=== PATIENT | female | born 1955 | race Caucasian/White ===

== ENCOUNTER 2019-05-01 20:50 | Emergency (ER) | payer MEDICARE ==
[~2019-05-01] VITALS: Ht 162.6 cm; Wt 81.7 kg
[~2019-05-01 20:50] MED LIST: ABILIFY2 MG PO; CYMBALTA60 MG PO; FENOFIBRATE145 MG PO; LEVOTHYROXINE125 MCG PO; LOVENOX120 MG SUB-Q; METOPROLOL TART25 MG PO; OXYCODONE HCL5 MG PO; PRADAXA150 MG PO; SYNTHROID25 MCG PO
[2019-05-01] MEDS ORDERED: XARELTO10 MG PO (21:03)
[2019-05-01] MEDS ORDERED: CEPHALEXIN500 MG PO (21:22)
== END 2019-05-01 21:30 | disposition home or self-care (01) ==
LOC: ED 20:50
DX: S41.151A Open bite of right upper arm, initial encounter (principal); F32.9 Major depressive disorder, single episode, unspecified; F41.9 Anxiety disorder, unspecified; Z88.1 Allergy status to other antibiotic agents; Z88.0 Allergy status to penicillin; Z88.3 Allergy status to other anti-infective agents; Z86.711 Personal history of pulmonary embolism; Z79.01 Long term (current) use of anticoagulants; Z79.899 Other long term (current) drug therapy; W55.01XA Bitten by cat, initial encounter
CPT/HCPCS: 99283

== ENCOUNTER 2022-02-08 06:09 | Day surgery (SDC) | payer MEDICARE, OTHER ==
[~2022-02-08] VITALS: Ht 162.6 cm; Wt 86.2 kg
[~2022-02-08 06:09] MED LIST changes: +CEPHALEXIN500 MG PO; +XARELTO10 MG PO
--- NOTE | 2022-02-08 08:41 | NUR ---
02/08/22 0841 Nena Lam 0816 PT ARRIVED IN PACU SLEEPY. ABD SOFT AND PASSING FLATUS. 0825 DR AT BEDSIDE TALKING WITH PT. ALL QUESTIONS ANSWERED. 0840 SNORING. REU.
--- NOTE | 2022-02-08 10:06 | NUR ---
PT INVOLVED IN PHONE CALL, REQUESTED I CHECK BACK.
--- NOTE | 2022-02-08 15:35 | OR ---
[facility] [address] [place], [place] [address] Signed DATE OF OPERATION: 02/08/2022 SURGEON: Enoch Glasgow MD PREOPERATIVE DIAGNOSES: 1. History of polyps (cecum and right colon in 2018). 2. Chronic anticoagulation (Xarelto) for history of pulmonary embolism. POSTOPERATIVE DIAGNOSES: 1. Polyp of cecum, sessile, excised. 2. Polyp of sigmoid (excised). 3. Diverticular changes of sigmoid. PROCEDURE: Total colonoscopy to cecum with cold snare polypectomy x2. ANESTHESIA: Intravenous sedation; fentanyl 150 mcg and Versed 6 mg. INDICATION: This 66-year-old white woman is a patient of Ana Paula Márquez, and known to me from the past having undergone colonoscopy in 2018, at which time she was found to have a villoglandular polyp of the cecum and a tubular adenoma of the right colon. She is here for surveillance colonoscopy. She does have underlying history of pulmonary embolism for which she is maintained on Xarelto. She understands the risk of bleeding, infection, and perforation related to colonoscopy and wished to proceed. Notably, she has been off Xarelto days. FINDINGS: The prep was good. Complete colonoscopy was undertaken to the cecum. She was poorly tolerant of the sedation initially, but complete colonoscopy was undertaken to the cecum without question. There was a sessile polyp of the cecum, which was excised with cold snare technique completely as well as a smaller such polyp in the sigmoid similarly excised. Diverticular changes were noted of the sigmoid as well. DESCRIPTION OF PROCEDURE: The patient was brought to the endoscopy suite and placed in the lateral decubitus position, given intravenous sedation to the point of slurred speech and nystagmus with full cardiopulmonary monitoring. Digital rectal examination was normal. Electronically Signed By: ENOCH GLASGOW MD 02/08/22 1535 PATIENT NAME: BRIAN PIERRE OPERATIVE REPORT DATE OF : 57 REPORT #: [id number] PHYSICIAN: ENOCH GLASGOW MD PCP: ANA PAULA MÁRQUEZ PAC REPORT IS CONFIDENTIAL AND NOT TO BE RELEASED WITHOUT AUTHORIZATION [facility] [address] [place], [place] [address] Signed An Olympus video colonoscope was passed in the rectum and manipulated into the sigmoid where diverticula were noted. Passage further was somewhat challenging on the basis of poor tolerance of her sedation. Additional sedation was given as needed ultimately successful in allowing for adequate sedation. She was noted to have a sleep apnea type physiology during the course of her procedure. The scope was ultimately advanced to the cecum. The ileocecal valve and appendiceal orifice appeared normal. A sessile polyp of the cecum was identified and excised with cold snare technique with complete excision. Additional biopsies were taken on the edges to assure complete extirpation. The scope was withdrawn from that point and examination throughout showed no sign of abnormality into the sigmoid at approximately 30 cm where a sessile polyp was noted, this was excised with cold snare technique completely as well. The scope was withdrawn and diverticular changes were noted in the sigmoid elsewhere. The rectum was normal. Retroflexed view was normal. Scope was removed and the patient was taken to the recovery room in good condition. CONCLUDING DIAGNOSES: 1. Polyps x2. 2. Diverticulosis. PLAN: Recommend repeat colonoscopy in three years. Would recommend use of propofol at that time. The patient should be evaluated for sleep apnea syndrome based on physiology demonstrated during the course of the procedure. Lastly, she should restart Xarelto on January. She will return to the ongoing care of GABI Avendano. Enoch Glasgow MD /BATOOLL /[id number] Copies: ~ Electronically Signed By: ENOCH GLASGOW MD 02/08/22 1535 PATIENT NAME: BRIAN PIERRE OPERATIVE REPORT DATE OF : 57 REPORT #: [id number] PHYSICIAN: ENOCH GLASGOW MD PCP: ANA PAULA MÁRQUEZ PAC REPORT IS CONFIDENTIAL AND NOT TO BE RELEASED WITHOUT AUTHORIZATION
--- NOTE | 2022-02-09 17:50 | PATH ---
[facility] [address] [place], [place] [address] Signed SPECIMEN(S): A CECUM POLYP SPECIMEN(S): B SIGMOID POLYP SPECIMEN SOURCE: A. CECUM POLYP B. SIGMOID POLYP CLINICAL HISTORY: Colonoscopy. Surveillance; history of colon polyps. Post: Polyps x 2, diverticula. FINAL PATHOLOGIC DIAGNOSIS: A. Colon, cecum, polyp, polypectomy: - Fragments of tubular adenoma. - Negative for high-grade dysplasia or malignancy. B. Colon, sigmoid, polyp, polypectomy: - Hyperplastic polyp. - Negative for dysplasia or malignancy. NAL:cml:C2NR MICROSCOPIC EXAMINATION: Histologic sections of all submitted blocks are examined by light microscopy. These findings, together with the gross examination, support the pathologic diagnosis. GROSS DESCRIPTION: Two specimens are received in two containers labeled with "EM." A. The specimen, labeled "EM, 1," and designated on the requisition "cecum polypectomy," is received in formalin and consists of three fragments of pink-burr tissue (0.2-0.3 cm in greatest dimension) and one pink-burr polypoid piece of tissue (0.8 cm in greatest dimension). The resection margin of the polypoid piece of tissue is inked blue and the piece is bisected. The specimen is submitted entirely in cassette (A1). B. The specimen, labeled "EM, 2," and designated on the requisition "sigmoid polypectomy," is received in formalin and consists of two fragments of pink-burr tissue (0.3 cm in greatest dimension). The specimen is submitted entirely in cassette (B1). AC (under the direct supervision of a pathologist) The Gross Description was prepared using a voice recognition system. The report PATIENT NAME: BRIAN PIERRE PATHOLOGY DATE OF : 57 REPORT #: [id number] PHYSICIAN: LUIS MOSS PCP: ANA PAULA PROCTOR PAC REPORT IS CONFIDENTIAL AND NOT TO BE RELEASED WITHOUT AUTHORIZATION [facility] [address] [place] [address] Signed was reviewed for accuracy; however, sound-alike word errors, addition and/or deletions may occur. If there is any question about this report, please contact Client Services. PERFORMING LABORATORY: The technical component was performed by [facility] [address] (CLIA# [id number]). Professional interpretation was performed by [facility], [address] [address] (CLIA# [id number]). Diagnostician: Sylvie Bartlett MD Pathologist Electronically Signed 02/09/2022 Copies: ~ PATIENT NAME: BRIAN PIERRE PATHOLOGY DATE OF : 57 REPORT #: [id number] PHYSICIAN: LUIS PATHOLOGY PCP: ANA PAULA PROCTOR PAC REPORT IS CONFIDENTIAL AND NOT TO BE RELEASED WITHOUT AUTHORIZATION
== END 2022-02-08 09:05 | disposition home or self-care (01) ==
LOC: OPS 06:09 → DS 06:09 → OPS 06:45 → DS 14:00 → OPS 14:00
PROVIDERS: ATTEND Surgery
PROC: 0DBN8ZX Excision of Sigmoid Colon, Via Natural or Artificial Opening Endoscopic, Diagnostic (ICD-10-PCS; 2022-02-08)
PROC: 0DBH8ZX Excision of Cecum, Via Natural or Artificial Opening Endoscopic, Diagnostic (ICD-10-PCS; principal; 2022-02-08 06:45)
DX: Z12.11 Encounter for screening for malignant neoplasm of colon (principal); D12.0 Benign neoplasm of cecum; Z86.711 Personal history of pulmonary embolism; Z79.01 Long term (current) use of anticoagulants; K57.30 Diverticulosis of large intestine without perforation or abscess without bleeding; Z88.0 Allergy status to penicillin; Z88.1 Allergy status to other antibiotic agents; E78.5 Hyperlipidemia, unspecified; I10 Essential (primary) hypertension; E03.9 Hypothyroidism, unspecified; K21.9 Gastro-esophageal reflux disease without esophagitis; E05.00 Thyrotoxicosis with diffuse goiter without thyrotoxic crisis or storm
CPT/HCPCS: 99153; G0500; J2250; J3010; J7121

== ENCOUNTER 2024-09-21 15:32 | Emergency (ER) | payer MEDICARE, OTHER ==
[~2024-09-21] VITALS: Ht 162.6 cm; Wt 87.5 kg
[2024-09-21 16:06] LABS: PLATELET COUNT 393 K/uL (140-440); RDW 13.7 (10.5-15.0)
[2024-09-21 16:08] LABS: HEMATOCRIT 40.2 % (35.0-50.0); HEMOGLOBIN 13.5 g/dL (12.0-18.0); MCHC 33.6 g/dl (30-36); MCV 92.3 fl (81-99); RBC 4.35 M/ul (4.3-5.7)
[2024-09-21 16:24] LABS: ALBUMIN 3.6 g/dL (3.4-5.0); ALBUMIN/GLOBULIN RATIO 0.97 (1.1-2.4); BILIRUBIN, TOTAL 0.1 ng/dL (0.2-1.0); BUN/CREATININE RATIO 23.89 (6.0-28.6); CALCIUM 10.3 mg/dL (8.5-10.1); CREATININE, SERUM 1.13 mg/dL (0.55-1.02); MAGNESIUM 1.9 mg/dL (1.8-2.4); PROTEIN, TOTAL 7.3 g/dL (6.4-8.2)
[2024-09-21 16:28] LABS: EOSINOPHILS, MANUAL DIFF 4; LYMPHOCYTES, MANUAL DIFF 57; MONOCYTES, MANUAL DIFF 4; NEUTROPHILS, MANUAL DIFF 35
[2024-09-21 19:05] VITALS: BP 135/87
--- NOTE | 2024-09-21 21:39 | EKG ---
[facility] [facility] [address] [facility] [place] [address] Signed Sinus tachycardia with premature atrial complexes Otherwise normal ECG No previous ECGs available Confirmed by Adalberto Tyson MD () on 09/21/2024 9:39:40 PM Electronically Signed By: ADALBERTO TYSON MD 09/21/242138 PATIENT NAME: BRIAN PIERRE Electrocardiogram DATE OF : 57 PHYSICIAN: ADALBERTO TYSON MD REPORT #: [id number] REPORT IS CONFIDENTIAL AND NOT TO BE RELEASED WITHOUT AUTHORIZATION
--- NOTE | 2024-09-21 21:40 | EKG ---
[facility] [address] [facility] [place] [address] Signed Sinus rhythm with premature atrial complexes Otherwise normal ECG When compared with ECG of 21-SEP-2024 15:36, No significant change was found Confirmed by Adalberto Tyson MD () on 09/21/2024 9:40:43 PM Electronically Signed By: ADALBERTO TYSON MD 09/21/242139 PATIENT NAME: BRIAN PIERRE Electrocardiogram DATE OF : 57 PHYSICIAN: ADALBERTO TYSON MD REPORT #: [id number] REPORT IS CONFIDENTIAL AND NOT TO BE RELEASED WITHOUT AUTHORIZATION
== END 2024-09-21 19:05 | disposition home or self-care (01) ==
LOC: ED 15:32
PROVIDERS: Internal Medicine
DX: I49.1 Atrial premature depolarization (principal); E03.9 Hypothyroidism, unspecified; I10 Essential (primary) hypertension; Z86.711 Personal history of pulmonary embolism; Z88.0 Allergy status to penicillin; Z88.3 Allergy status to other anti-infective agents; Z88.1 Allergy status to other antibiotic agents; Z79.01 Long term (current) use of anticoagulants; Z79.890 Hormone replacement therapy; Z79.899 Other long term (current) drug therapy
CPT/HCPCS: 36415; 71045; 80053; 83735; 84443; 84484; 85025; 93005; 93010; 99285-25

== ENCOUNTER 2025-07-09 10:32 | Day surgery (SDC) | payer MEDICARE, OTHER ==
[2025-07-08 08:46] VITALS: BP 133/85
[~2025-07-09] VITALS: Ht 162.6 cm; Wt 84.0 kg
[~2025-07-09 10:32] MED LIST changes: +IBLOOD GLUCOSE TEST STRIP 1 EA TEST VI PRN; +LACTATED RINGER'S 1,000 ML IV SCH; +LIDOCAINE HCL 1% 5 ML SDV INJ ONE; +VITAMIN D3250 MC2 PO
[2025-07-09 10:58] VITALS: BP 129/75
[2025-07-09] MEDS ORDERED: LIDOCAINE HCL 2% 5 ML SDV ONE (12:18)
--- NOTE | 2025-07-09 13:15 | NUR ---
07/09/25 1315 Vickie Ware 1304-PATIENT ARRIVED TO PACU ON 6L MASK RR EVEN. PATIENT LAYING LEFT LATERAL IVF INFUSING. SR HR 60'S. PATIENT NONAROUSABLE BP READING LOWER 80'S SYSTOLIC 1306-PATIENT REACTIVE TO VERBAL STIMULI OPENING EYES AND MOVING TO BACK REMAINS VERY DROWSY VENU NITRIC ACID CONCENTRATOR OPERATOR REMAINS AT BEDSIDE HOB IN TRENDELENBERG WITH IVF INFUSING 1307-BP INCREASING TO 89/63 IVF INFUSING. PATIENT DROWSY 6L MASK RR EVEN ORIENTED TO PACU. REPORTING "NEED TO PEE" EDUCATED ABOUT NOT BEING ABLE TO GET UP AT THIS TIME AND WILL DO BEDPAN SOON. 1315-PATIENT RESTING WITH EYES CLOSED IVF INFUSING. BP 110/71 HR 71
[2025-07-09 13:55] VITALS: BP 118/87
--- NOTE | 2025-07-11 11:31 | OR ---
[facility] [address] [place], [place] [address] Signed DATE OF OPERATION: 07/09/2025 SURGEON: Enoch Glasgow MD PREOPERATIVE DIAGNOSIS: History of polyps. POSTOPERATIVE DIAGNOSES: 1. Small polyp, right colon (excised). 2. Internal hemorrhoids. PROCEDURE: Total colonoscopy to cecum with intubation of ileum and biopsy of ileum and cold snare polypectomy x1. ANESTHESIA: Intravenous sedation propofol; Jerome Jones CRNA. INDICATION: This 70-year-old woman is a patient of Ana Paula Márquez and underwent colonoscopy in 2021 where she was found to have two polyps. There were tubular adenomas. She was recommend to have repeat in three years. She has no current symptoms of bleeding, diarrhea or constipation and no family history of colon cancer. She is admitted at this time to undergo colonoscopy, understands the risk of bleeding, infection, and perforation. FINDINGS: The prep was quite excellent. Complete colonoscopy was undertaken of the cecum with intubation of the ileum. The colon was rather long, but was intubated fully including into the ileum of course. The ileum was biopsied and a polyp of the right colon was excised with cold snare technique as well. She did have internal hemorrhoids on retroflexed view. There were no other findings of concern. DESCRIPTION OF PROCEDURE: The patient was brought to the endoscopy suite and placed in lateral decubitus position, given intravenous sedation to the point of slurred speech and nystagmus. Full cardiopulmonary monitoring was maintained by the research interviewer, who was infusing propofol for dominant sedation approach. Digital rectal examination was performed which was normal. An Olympus video colonoscope was passed in the rectum and manipulated throughout the colon ultimately intubating the Electronically Signed By: ENOCH GLASGOW MD 07/11/25 1131 PATIENT NAME: BRIAN PIERRE OPERATIVE REPORT DATE OF : 57 REPORT #: [id number] PHYSICIAN: ENOCH GLASGOW MD PCP: EMILIANO CHRISTENSEN REPORT IS CONFIDENTIAL AND NOT TO BE RELEASED WITHOUT AUTHORIZATION [facility] [address] [place], [place] [address] Signed right colon and noting a polyp there. This was excised with cold snare technique and retrieved for pathology. A somewhat bulky ileocecal valve was noted. Scope was passed through this area, noting that the ileocecal valve was otherwise normal. Manipulation of the ileum was intubated and biopsies taken of the ileum to rule out occult ileitis. Scope was withdrawn and examination upon withdrawal of scope showed no other abnormality into the rectum. Retroflexed view confirmed internal hemorrhoidal change. Scope was removed. The patient was taken to recovery room in good condition. CONCLUDING DIAGNOSIS: Polyp, right colon x1. Normal-appearing ileum. Internal hemorrhoids. PLAN: Recommend repeat colonoscopy in 7 to 10 years, sooner if symptoms should develop. She will return to the ongoing care of GABI Avendano. MD LI Wallace/DEMOND /[id number] cc: Ana Paula Márquez PA-C Copies: ANA PAULA MÁRQUEZ PAC ~ Electronically Signed By: ENOCH GLASGOW MD 07/11/25 1131 PATIENT NAME: BRIAN PIERRE OPERATIVE REPORT DATE OF : 57 REPORT #: [id number] PHYSICIAN: ENOCH GLASGOW MD PCP: EMILIANO CHRISTENSEN REPORT IS CONFIDENTIAL AND NOT TO BE RELEASED WITHOUT AUTHORIZATION
--- NOTE | 2025-07-11 12:08 | PATH ---
[facility] [address] [facility] [place], [place] [address] Signed SPECIMEN(S): A ASCENDING COLON POLYP SPECIMEN(S): B ILEUM BIOPSY SPECIMEN SOURCE: A. ASCENDING COLON POLYP B. ILEUM BIOPSY CLINICAL HISTORY: history of colon polyps A) polyp, B) biopsy FINAL PATHOLOGIC DIAGNOSIS: A. Ascending colon polyp: - Tubular adenoma, negative for high-grade dysplasia. B. Ileum biopsy - Small intestinal mucosa with no significant pathologic abnormalities. - Negative for inflammation or dysplasia. NA MICROSCOPIC EXAMINATION: Histologic sections of all submitted blocks are examined by light microscopy. These findings, together with the gross examination, support the pathologic diagnosis. GROSS DESCRIPTION: A. The specimen, labeled and designated "Melissa, ascending colon polyp," is received in formalin and consists of two burr soft tissue fragments, ranging from 0.2-0.3 cm. Entirely submitted in (A1). B. The specimen, labeled and designated "Melissa, ileum biopsy," is received in formalin and consists of two burr soft tissue fragments, ranging from 0.1-0.5 cm. Entirely submitted in (B1). AB (under the direct supervision of a pathologist) The Gross Description was prepared using a voice recognition system. The report was reviewed for accuracy; however, sound-alike word errors, addition and/or deletions may occur. If there is any question about this report, please contact Client Services. ADDITIONAL NOTES: Immunohistochemical and/or in situ hybridization studies if performed in this case included appropriate positive controls that reacted as expected. This test was developed and its performance PATIENT NAME: BRIAN PIERRE PATHOLOGY DATE OF : 57 REPORT #: [id number] PHYSICIAN: LUIS MOSS PCP: EMILIANO CHRISTENSEN REPORT IS CONFIDENTIAL AND NOT TO BE RELEASED WITHOUT AUTHORIZATION [address] [address] Signed characteristics determined by [facility]. It has not been cleared or approved by the U.S. Food and Drug Administration. The FDA has determined that such clearance or approval is not necessary. This test is used for clinical purposes. It should not be regarded as investigational or for research. [facility] is certified under the Clinical Laboratory Improvement Amendments of 1988 (CLIA) as qualified to perform high complexity clinical laboratory testing. PERFORMING LABORATORY: Technical component was performed by [facility], [address] [place] [address] (CLIA# [id number]). Professional interpretation was performed by [facility], [address] [place] [address] (CLIA#: [id number]). Diagnostician: Grupo Lincoln MD Pathologist Electronically Signed 07/11/2025 Copies: ~ PATIENT NAME: BRIAN PIERRE PATHOLOGY DATE OF : 57 REPORT #: [id number] PHYSICIAN: LUIS PATHOLOGY PCP: EMILIANO CHRISTENSEN REPORT IS CONFIDENTIAL AND NOT TO BE RELEASED WITHOUT AUTHORIZATION
== END 2025-07-09 13:53 | disposition home or self-care (01) ==
LOC: DS 10:32
PROVIDERS: ATTEND Surgery
PROC: 0DBF8ZX Excision of Right Large Intestine, Via Natural or Artificial Opening Endoscopic, Diagnostic (ICD-10-PCS; principal; 2025-07-09 09:45)
PROC: 0DBB8ZX Excision of Ileum, Via Natural or Artificial Opening Endoscopic, Diagnostic (ICD-10-PCS; principal; 2025-07-09 09:45)
DX: Z12.11 Encounter for screening for malignant neoplasm of colon (principal); D12.2 Benign neoplasm of ascending colon; K64.8 Other hemorrhoids; Z86.0101 Personal history of adenomatous and serrated colon polyps; I10 Essential (primary) hypertension; E89.0 Postprocedural hypothyroidism; Z88.1 Allergy status to other antibiotic agents; Z88.0 Allergy status to penicillin; Z79.01 Long term (current) use of anticoagulants; Z79.890 Hormone replacement therapy; Z79.899 Other long term (current) drug therapy
CPT/HCPCS: 00811; 88305; J2003; J2704; J7121